=== PATIENT | female | born 1980 | race American Indian/Alaskan Native ===

== ENCOUNTER 2018-10-16 09:56 | Outpatient (CLI) | payer MEDICAID ==
--- NOTE | 2018-10-16 14:08 | Ultrasound Report ---
LIMITED RUQ ABDOMINAL ULTRASOUND INDICATION: GROWTH ON GALLBLADDER/D49.59 Neoplasm of unspecified. COMPARISON: No relevant prior imaging study available. FINDINGS: Pancreas: Visualized portions show no significant abnormality. Abdominal Aorta: No significant abnormality. IVC: No significant abnormality. Liver: The liver measures 15 cm in length. No significant abnormality. 2 cm right hepatic lobe cyst is noted. Normal hepatopedal blood flow in the main portal vein. Gallbladder: There is echogenic debris within the gallbladder with areas of acoustic shadowing. These findings are more consistent with cholelithiasis and gallbladder mass. No wall thickening or abnorma l dilatation.. Bile ducts: No significant abnormality. Common bile duct measures 2.9 mm. Right kidney: No significant abnormality visualized.. Free fluid: None. Additional Findings: None. IMPRESSION: Echogenic shadowing debris in the gallbladder most consistent with cholelithiasis. If there is clini rita concern for gallbladder neoplasm, CT abdomen with contrast is recommended.. Signer Name: Delfino Hankins Jr, MD Signed: 10/16/2018 2:04 PM Workstation Name: [id number]
== END 2018-10-16 09:57 | disposition home or self-care (01) ==
LOC: US 09:56
PROVIDERS: ATTEND Surgery
DX: K76.89 Other specified diseases of liver (principal)
CPT/HCPCS: 76705

== ENCOUNTER 2018-11-11 06:09 | Day surgery (SDC) | payer MEDICAID ==
[2018-11-09 12:41] LABS: Basophils % (Auto) 0.9 % (0.0-1.8); Eosinophils # (Auto) 0.1 K/mm3 (0.0-0.4); Eosinophils % (Auto) 2.3 % (0.0-4.3); Hematocrit 41.8 % (30.3-42.9); Lymphocytes # (Auto) 1.9 K/mm3 (1.2-5.4); Lymphocytes % (Auto) 45.2 % (13.4-35.0); Mean Corpuscular HGB Conc 34 % (30-34); Mean Corpuscular Volume 90 fl (79-97); Monocytes # (Auto) 0.5 K/mm3 (0.0-0.8); Monocytes % (Auto) 12.6 % (0.0-7.3); Platelet Count 270 K/mm3 (140-440); Red Blood Count 4.64 M/mm3 (3.65-5.03); Red Cell Distribution Width 15.2 % (13.2-15.2)
--- NOTE | 2018-11-09 12:47 | Anesthesia Consultation ---
Anesthesia Consult and Med Hx Date of service: 11/09/18 - Airway Anesthetic Teeth Evaluation: Good ROM Head & Neck: Adequate Mental/Hyoid Distance: Adequate Mallampati Class: Class II Intubation Access Assessment: Probably Good (lip piercing lower left side) - Pulmonary Exam CTA: Yes - Cardiac Exam Cardiac Exam: RRR - Pre-Operative Health Status ASA Pre-Surgery Classification: ASA1 Proposed Anesthetic Plan: General - Pulmonary Hx Smoking: No Hx Respiratory Symptoms: Yes (nasal congestion/runny nose; no pulmonary symptoms, fevers, or chills) SOB: No - Cardiovascular System Hx Hypertension: No Hx Heart Attack/AMI: No - Central Nervous System CVA: No - Gastrointestinal Hx Gastroesophageal Reflux Disease: No - Endocrine Hx Renal Disease: No Hx Liver Disease: No Hx Insulin Dependent Diabetes: No Hx Non-Insulin Dependent Diabetes: No Hx Thyroid Disease: No - Other Systems Hx Alcohol Use: Yes (OCCA) Hx Obesity: Yes - Additional Comments Anesthesia Medical History Comments: No hx anesthetic complications. Complains of nasal congestion and runny nose but denies fevers, chills, dyspnea, or cough.
[2018-11-09 13:03] LABS: Alanine Aminotransferase 9 units/L (7-56); Albumin 4.3 g/dL (3.9-5); BUN/Creatinine Ratio 10; Blood Urea Nitrogen 7 mg/dL (7-17); Calcium 8.7 mg/dL (8.4-10.2); Hemolysis Index 24
[~2018-11-11 06:09] MED LIST: ANCEF/STERILE WATER 2 GM/20 ML 2 GM/20 ML SYRINGE IV NR; LACTATED RINGERS 1,000 ML IV SCH; NEURONTIN PO NR; TRANSDERM-SCOP TD NR; VERSED IV NR
[2018-11-11] MEDS ORDERED: NACL BACTERIOSTATIC INFILTRATI ONE (06:50)
--- NOTE | 2018-11-11 07:21 | Anesthesia Day of Surgery ---
Anesthesia Day of Surgery - Day of Surgery Patient Examined: Yes Patient H&P Reviewed: Yes Patient is NPO: Yes
--- NOTE | 2018-11-11 07:21 | Anesthesia Day of Surgery ---
Anesthesia Day of Surgery - Day of Surgery Patient Examined: Yes Patient H&P Reviewed: Yes Patient is NPO: Yes
[2018-11-11] MEDS ORDERED: DILAUDID IV PRN (07:30)
[2018-11-11] MEDS ORDERED: ZEMURON IV ONE (07:32)
[2018-11-11] MEDS ORDERED: XYLOCAINE MPF 2% ONE (07:32)
[2018-11-11] MEDS ORDERED: SUBLIMAZE ONE (07:32)
[2018-11-11] MEDS ORDERED: DECADRON ONE ×2 (07:32→08:53)
[2018-11-11] MEDS ORDERED: ZOFRAN ONE ×2 (07:32→08:53)
[2018-11-11] MEDS ORDERED: MARCAINE-EPI 0.5%-1:200,000 INFILTRATI ONE ×2 (07:33→08:16)
[2018-11-11] MEDS ORDERED: KETAMINE 50 MG/ML-WATER SYRING ONE (07:33)
[2018-11-11] MEDS ORDERED: DIPRIVAN 10 MG/ML IV ONE (07:33)
[2018-11-11] MEDS ORDERED: ceFAZolin 2 GM in NACL 0.9% 100 ML IV ONE (08:00)
[2018-11-11] MEDS ORDERED: NACL 0.9% IR ONE (08:17)
[2018-11-11] MEDS ORDERED: ROBINUL ONE (08:53)
[2018-11-11] MEDS ORDERED: BLOXIVERZ ONE (08:53)
--- NOTE | 2018-11-11 08:53 | Discharge Summary ---
Short Stay Discharge Plan Activity: other (observe x 4 hrs then july d/c if stable. ice chips today. cl liq in am. solid low fat diet in 48 hrs. keep dressings dry x 5 days. no lifting over 5 lbs x 2 wks) Diet: other Wound: keep clean and dry Additional Instructions: REMOVE SCOPALAMINE PATCH AFTER 3 DAYS. WASH HANDS AFTER REMOVING. aleve I po q 6-8 hrs prn for breakthrough pain Follow up with: ENEDINA MATAMOROS MD [Staff Physician] - 11/16/18
[2018-11-11] MEDS ORDERED: NORCO 5/325 PO PRN (09:21)
--- NOTE | 2018-11-11 10:13 | Operative Report ---
PREOPERATIVE DIAGNOSIS: Gallbladder disease. POSTOPERATIVE DIAGNOSIS: Gallbladder disease. PROCEDURE: Laparoscopic cholecystectomy. SURGEON: Maurice Mac MD HEALTHCARE TRANSLATOR: Mariposa Woo MD ANESTHESIA: General. ESTIMATED BLOOD LOSS: Minimal. Drains: None. COMPLICATIONS: None. DESCRIPTION OF PROCEDURE: The patient was taken to the operating room, prepped and draped in the usual sterile fashion. Veress needle was inserted and CO2 insufflation begun. A 5 mm trocar was then inserted and camera inserted. All other trocars inserted under direct visualization. The patient had 3 previous C-sections as well as an umbilical hernia repair, so there were fair amount of omental adhesions on the lower half of the abdomen; however, trocars were able to be inserted under direct visualization between the adhesions. Gallbladder was then grasped at the fundus and infundibulum and retracted towards the right subphrenic space. Attention was then focused to Calot's triangle. The cystic duct and artery were delineated in their entire course. Both were then doubly clipped and transected. Hook electrocautery was used to dissect the gallbladder from the overlying liver bed. Prior to complete removal, the liver bed was inspected for bleeding and noted to be dry. The cystic duct and artery stumps were once again visualized. The clips were noted to be securely in place with no evidence of bleeding or bile leak. Gallbladder was then completely freed and brought out through the subxiphoid port. This area was inspected for bleeding and noted to be dry. Subxiphoid trocar was then gently reinserted. All other 5 mm trocars were removed under direct visualization. No bleeding or oozing noted. Subxiphoid trocar was then used to expel the CO2 and the trocar removed. The fascia at this site was closed with a [id number] 0 Vicryl suture. The skin was closed with 4-0 subcuticular Vicryl. A 0.5% Marcaine was infiltrated throughout all port sites for postoperative pain relief. Steri-Strips, 2 x 2s, and Tegaderms were applied. The patient tolerated the procedure well and left the OR in stable condition. JOB# [id number] KATI/MARLA
[2018-11-11 12:10] VITALS: BP 122/83
--- NOTE | 2018-11-11 13:36 | Post Anesthesia Evaluation ---
- Post Anesthesia Evaluation Patient Participated: Yes Airway Patent: Yes Stable Respiratory Function: Yes Nausea/Vomiting: No Temp > 96.8F: Yes Pain Manageable: Yes Adequeate Hydration: Yes Anesthesia Complications: No
== END 2018-11-11 13:00 | disposition home or self-care (01) ==
LOC: OR 06:09
PROVIDERS: ATTEND Surgery
DX: K80.10 Calculus of gallbladder with chronic cholecystitis without obstruction (principal); E66.9 Obesity, unspecified; F32.9 Major depressive disorder, single episode, unspecified; F41.9 Anxiety disorder, unspecified; Z68.32 Body mass index [BMI] 32.0-32.9, adult; Z98.891 History of uterine scar from previous surgery; Z72.89 Other problems related to lifestyle; Z79.899 Other long term (current) drug therapy; Z98.890 Other specified postprocedural states; Z86.2 Personal history of diseases of the blood and blood-forming organs and certain disorders involving the immune mechanism
CPT/HCPCS: 36415; 47562; 80053; 82150; 84703; 85025; 88304; J0690; J1100; J2250; J2405; J2704; J2710; J3010; J7120